=== PATIENT | female | born 1975 | race Caucasian/White ===

== ENCOUNTER 2022-02-27 19:51 | Emergency (ER) | payer BC, OTHER ==
[2022-02-27] MEDS ORDERED: Amlodipine 5 MG TAB ONE (20:19)
== END 2022-02-27 20:45 | disposition home or self-care (01) ==
LOC: MADERS 19:51
DX: I10 Essential (primary) hypertension (principal); R29.700 NIHSS score 0; Z91.14 Patient's other noncompliance with medication regimen
CPT/HCPCS: 93005